=== PATIENT | male | born 2000 | race Caucasian/White ===

== ENCOUNTER 2020-03-02 20:44 | Emergency (ER) | payer BC ==
[~2020-03-02] VITALS: Ht 157.5 cm; Wt 59.0 kg
[2020-03-02 20:57] VITALS: Ht 157.5 cm; Wt 59.0 kg
[2020-03-02 22:03] VITALS: BP 127/78
== END 2020-03-02 22:03 | disposition home or self-care (01) ==
LOC: ED 20:44
DX: U07.1 COVID-19 (principal)